=== PATIENT | male | born 1995 | race Caucasian/White ===

== ENCOUNTER 2020-06-22 21:49 | Outpatient (REF) | payer MEDICAID, SELFPAY ==
[2020-06-25 14:15] LABS: Chlamydia Result Negative (Negative); GC Result Negative (Negative)
== END 2020-06-22 22:09 ==
LOC: NCHCN 21:49
PROVIDERS: PCP Nurse Practitioner Family; Visit Provider Nurse Practitioner Family
DX: Z91.89 Other specified personal risk factors, not elsewhere classified (principal); Z11.3 Encounter for screening for infections with a predominantly sexual mode of transmission
CPT/HCPCS: 87491; 87591

== ENCOUNTER 2020-06-26 18:34 | Outpatient (REF) | payer MEDICAID, SELFPAY ==
[2020-06-28 08:57] LABS: HBs Antibody, Quant 6.5 mIU/mL (See Note); Hepatitis B Surface Ab Negative (See Note)
[2020-06-28 09:10] LABS: Hepatitis B Surface Ag Negative (Negative)
[2020-06-28 10:10] LABS: Hepatitis C Ab w Rflx HCV PCR Negative (Negative)
[2020-06-28 10:17] LABS: HIV-1/2 Ag & Ab Screen Negative (Negative)
[2020-06-28 11:12] LABS: Syphilis Serology (RPR) Negative (Negative)
[2020-06-28 21:46] LABS: C.trach, Misc, Amplified RNA Negative (Negative); N.gonorr, Misc, Amplified RNA Negative (Negative); SOURCE: THROAT
== END 2020-06-26 18:54 ==
LOC: NCHCN 18:34
PROVIDERS: PCP Nurse Practitioner Family; Visit Provider Nurse Practitioner Family
DX: Z91.89 Other specified personal risk factors, not elsewhere classified (principal); J02.9 Acute pharyngitis, unspecified
CPT/HCPCS: 86706; 86803; 87340; 87389; 87491; 87591; 86592; 87341